=== PATIENT | female | born 1975 | race Caucasian/White ===

== ENCOUNTER 2018-08-23 07:17 | Inpatient (IN) | payer BC ==
[~2018-08-23] VITALS: Ht 167.6 cm; Wt 83.0 kg
[~2018-08-23 07:17] MED LIST: BACTRIM DS TAB1 EACH PO; MULTIPLE VITAM1 EAC1 PO; ZOFRAN ODT4 MG PO
[2018-08-23 07:18] VITALS: BP 114/84
[2018-08-23] MEDS ORDERED: SYNTHROID50 MCG PO (07:26)
[2018-08-23] MEDS ORDERED: ADDERALL 20 MG20 M1 PO (07:26)
[2018-08-23] MEDS ORDERED: ZOLOFT25 MG PO (07:27)
[2018-08-23 09:55] LABS: HEMOGLOBIN 13.7 gm/dL (12.0-15.0); MCH 32.6 pg (26.0-34.0); MCHC 35.2 g/dL (28.0-37.0); MCV 92.5 fL (80.0-100.0); RBC 4.21 mil/uL (4.20-5.00); WBC 6.8 thou/uL (4.0-11.0)
[2018-08-23 10:11] LABS: CALCIUM 8.2 mg/dL (8.5-10.1); CREATININE 0.9 mg/dL (0.6-1.0); MAGNESIUM 2.1 mg/dL (1.8-2.4); POTASSIUM 3.9 mmol/L (3.5-5.1)
--- NOTE | 2018-08-23 10:33 | NUR ---
ASSUMED PT CARE AT THIS TIME
[2018-08-23 11:55] VITALS: BP 114/71
[2018-08-23 20:35] VITALS: BP 113/72
--- NOTE | 2018-08-23 21:07 | NUR ---
PATIENT ALERT AND ORIENTED WITH AT BEDSIDE. PATIENT HAS LOW BACK SPASM EPISODES BUT STATES IT IS GETTING BETTER. INSTUCT PATIENT TO CALL FOR PAIN MEDICINE PRIOR TO PAIN GETTING INTOLERABLE AND INSTRUCT ON POSITIONING AND CALLING FOR HELP WHEN NEEDED. MRI SCHEDULED FOR THE AM. WILL CONTINUE TO FOLLOW.
[2018-08-24 03:53] LABS: CALCIUM 8.8 mg/dL (8.5-10.1); CREATININE 0.9 mg/dL (0.6-1.0); POTASSIUM 3.9 mmol/L (3.5-5.1)
[2018-08-24 04:08] LABS: HEMATOCRIT 39.7 % (37.0-47.0); HEMOGLOBIN 13.8 gm/dL (12.0-15.0); MCH 32.3 pg (26.0-34.0); MCHC 34.6 g/dL (28.0-37.0); MCV 93.3 fL (80.0-100.0); RBC 4.26 mil/uL (4.20-5.00); WBC 9.7 thou/uL (4.0-11.0)
[2018-08-24 04:45] VITALS: BP 106/79
--- NOTE | 2018-08-24 06:32 | NUR ---
ASSUMED CARE AT 1900, ASSESSMENT COMPLETED. PT C/O SEVERE LOW BACK PAIN, WORSE WITH MOVEMENT, ALSO REPORTS NUMB FEELING IN HANDS AND FEET. DENIES NAUSEA OR SOB. GAVE DOSE OF 1MG DILAUDID AT 1999, PT REPORTED IT HELPED THE PAIN VERY WELL. ALSO GAVE FLEXERIL AT HS. PT DENIED NEEDING PAIN MEDS THE REST OF THE NIGHT. WILL HAVE MRI TODAY. NO OTHER CONCERNS, WILL CONTINUE TO MONITOR.
[2018-08-24 07:20] VITALS: BP 110/57
--- NOTE | 2018-08-24 11:37 | NUR ---
ASSUMED CARE THIS AM, SHIFT ASSESSMENT DONE, MEDS GIVEN, VSS. REPORTED SEVERE PAIN, PRN PAIN MEDS GIVEN. WENT FOR A MRI THIS AM. RESTING IN BED NOW. DENIES ANY OTHER CONCERNS. WILL CONTINUE TO ASSESS AND ASSIST WITH ADLs NEEDED.
--- NOTE | 2018-08-24 13:45 | NUR ---
cm visited with pt and sig other at bedside, rt dcp. pt able to make her needs know " feeling better from yesterday, still hurting"/kelly. noted pt yell out when changing position in bed. pt reported " home with family, 2 to enter, 8-10 with hr x 1 to kids room, and 6 with hr x 1 to basement. when feeling ok, independent. 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 no anticipated needs. dcp home
[2018-08-24 16:30] VITALS: BP 105/65
[2018-08-24 20:15] VITALS: BP 114/68
[2018-08-24 22:00] VITALS: BP 126/68
--- NOTE | 2018-08-25 03:43 | NUR ---
PT WAS OBSERVED WATCHING TV IN HER ROOM AT THE START OF SHIFT.PT C/O LOWER BACK PAIN,MANAGED WITH PO PAIN MED.PT RESTING ON HER BED AT THIS TIME.UP WITHSBA TO THE BR.PT SLEEPING COMFORTABLY ON HER BED AT THIS TIME.CALL LIGHT WITHIN REACH.
[2018-08-25 06:16] VITALS: BP 108/55
[2018-08-25 07:41] VITALS: BP 116/60
[2018-08-25] MEDS ORDERED: FLEXERIL PO (14:11)
[2018-08-25] MEDS ORDERED: PERCOCET 5-3251 EACH PO (14:12)
[2018-08-25] MEDS ORDERED: PREDNISONE 10 M10 MG PO (14:13)
[2018-08-25 15:43] VITALS: BP 116/60
[2018-08-25 15:54] VITALS: BP 116/60
[2018-08-25 18:23] VITALS: BP 116/60
--- NOTE | 2018-08-25 18:24 | NUR ---
PT REVIEWED DISCHARGE PAPERS SIGNED AND COPY IN CHART. GIVEN ORIGINALS INCLUDING RX'S. IV ACESS DCD ALL BELONGINGS PACKED AND SENT WITH PATIENT.
--- NOTE | 2018-08-25 19:37 | NUR ---
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 WILL HAVE NURSES CALL PHARMACY ON HOW TO WASTE.
== END 2018-08-25 17:45 | disposition home or self-care (01) | DRG 552 ==
LOC: ER 07:17 → 4E 11:44 → EROBS 11:44 → 4E 12:21 → ENTRNSPT 08-25 17:35 → 4E 08-25 17:45
PROVIDERS: Emergency Medicine; ADMIT Hospitalist
DX: M54.5 Low back pain (principal); E03.9 Hypothyroidism, unspecified; F90.9 Attention-deficit hyperactivity disorder, unspecified type; F17.210 Nicotine dependence, cigarettes, uncomplicated; Z98.891 History of uterine scar from previous surgery; Z79.899 Other long term (current) drug therapy; Z88.1 Allergy status to other antibiotic agents; Z88.5 Allergy status to narcotic agent; Z28.21 Immunization not carried out because of patient refusal
CPT/HCPCS: 10084

== ENCOUNTER 2018-09-30 00:52 | Emergency (ER) | payer BC ==
[~2018-09-30] VITALS: Ht 167.6 cm; Wt 83.9 kg
[~2018-09-30 00:52] MED LIST changes: +ADDERALL 20 MG20 M1 PO; +FLEXERIL PO; +PERCOCET 5-3251 EACH PO; +PREDNISONE 10 M10 MG PO; +SYNTHROID50 MCG PO; +ZOLOFT25 MG PO
[2018-09-30 01:35] LABS: URINE BILIRUBIN NEGATIVE (Negative); URINE BLOOD TRACE (Negative); URINE CLARITY CLEAR; URINE COLOR YELLOW; URINE GLUCOSE-RANDOM* NEGATIVE (Negative); URINE KETONES TRACE (Negative); URINE LEUKOCYTES-REFLEX NEGATIVE (Negative); URINE PROTEIN (DIPSTICK) NEGATIVE (Negative)
[2018-09-30 01:42] LABS: URINE NITRITE-REFLEX POSITIVE (Negative)
[2018-09-30 01:51] LABS: SQUAMOUS 0-3 Few /LPF (0-3); URINE WBC-REFLEX 0-5 Rare /HPF (0-5)
[2018-09-30 01:52] LABS: BACTERIA-REFLEX 1-9 Few /HPF (None Seen); CASTS None Seen /LPF (None Seen); CRYSTALS None Seen /LPF (None Seen); MUCUS 0-3 Light strn/LPF (None Seen); URINE RBC 0-2 Rare /HPF (0-2)
[2018-09-30] MEDS ORDERED: PERCOCET 5-3251 EACH PO (02:15)
[2018-09-30] MEDS ORDERED: KEFLEX500 M1 PO (02:15)
[2018-09-30] MEDS ORDERED: SENNA-DOCUSATE1 EAC1 PO (02:15)
[2018-09-30] MEDS ORDERED: NAPROSYN500 MG PO (02:15)
[2018-09-30] MEDS ORDERED: MEDROLDOSEPACK PO (02:15)
[2018-09-30 02:18] VITALS: BP 127/80
== END 2018-09-30 02:27 | disposition home or self-care (01) ==
LOC: ER 00:52
PROVIDERS: Emergency Medicine
DX: M48.061 Spinal stenosis, lumbar region without neurogenic claudication (principal); N39.0 Urinary tract infection, site not specified; Z98.890 Other specified postprocedural states; F17.210 Nicotine dependence, cigarettes, uncomplicated; Z88.1 Allergy status to other antibiotic agents; Z88.5 Allergy status to narcotic agent; M25.571 Pain in right ankle and joints of right foot; M25.572 Pain in left ankle and joints of left foot

== ENCOUNTER 2019-04-16 11:09 | Emergency (ER) | payer BC ==
[~2019-04-16] VITALS: Ht 167.6 cm; Wt 81.7 kg
[~2019-04-16 11:09] MED LIST changes: +KEFLEX500 M1 PO; +MEDROLDOSEPACK PO; +NAPROSYN500 MG PO; +SENNA-DOCUSATE1 EAC1 PO
[2019-04-16] MEDS ORDERED: BUTALB-APAP-CA1 EACH PO (13:33)
[2019-04-16] MEDS ORDERED: NORFLEX100 MG PO (13:34)
[2019-04-16 14:02] VITALS: BP 132/91
== END 2019-04-16 14:02 | disposition home or self-care (01) ==
LOC: ER 11:09
DX: S00.03XA Contusion of scalp, initial encounter (principal); F17.210 Nicotine dependence, cigarettes, uncomplicated; Z98.890 Other specified postprocedural states; Z88.6 Allergy status to analgesic agent; Z88.1 Allergy status to other antibiotic agents; V89.2XXA Person injured in unspecified motor-vehicle accident, traffic, initial encounter; Y93.89 Activity, other specified; Y92.488 Other paved roadways as the place of occurrence of the external cause; Y99.8 Other external cause status

== ENCOUNTER 2020-02-19 22:57 | Emergency (ER) | payer BC ==
[~2020-02-19] VITALS: Ht 167.6 cm; Wt 74.8 kg
[~2020-02-19 22:57] MED LIST changes: +BUTALB-APAP-CA1 EACH PO; +NORFLEX100 MG PO
[2020-02-19 23:37] LABS: ABSOLUTE NEUTROPHILS 16.2 thou/uL (1.4-8.2); BASOPHILS 0.5 % (0.0-2.0); EOSINOPHILS 0.2 % (0.0-3.0); HEMATOCRIT 42.4 % (37.0-47.0); HEMOGLOBIN 14.6 gm/dL (12.0-15.0); MCHC 34.5 g/dL (28.0-37.0); MCV 90.1 fL (80.0-100.0); PLATELET COUNT 271 thou/uL (150-400); POLYS 91.3 % (36.0-66.0); RBC 4.71 mil/uL (4.20-5.00); RDW 12.4 % (10.5-14.5); WBC 17.7 thou/uL (4.0-11.0)
[2020-02-19 23:59] LABS: ANION GAP 11 mmol/L (7-16); BUN 12 mg/dL (7-18); CALCIUM 8.9 mg/dL (8.5-10.1); CHLORIDE 99 mmol/L (98-107); CO2 24 mmol/L (21-32); GLUCOSE 105 mg/dL (74-106); SODIUM 134 mmol/L (136-145)
[2020-02-19 23:59] LABS: URINE BILIRUBIN NEGATIVE (Negative); URINE BLOOD TRACE (Negative); URINE CLARITY CLEAR; URINE COLOR YELLOW; URINE GLUCOSE-RANDOM* NEGATIVE (Negative); URINE KETONES TRACE (Negative); URINE LEUKOCYTES-REFLEX NEGATIVE (Negative); URINE PROTEIN (DIPSTICK) NEGATIVE (Negative); URINE SPECIFIC GRAVITY >= 1.030 (1.005-1.035); URINE UROBILINOGEN 0.2 E.U./dl (0.2-1.0)
[2020-02-20] LABS: URINE NITRITE-REFLEX POSITIVE (Negative)
[2020-02-20 00:08] LABS: AMP/METHAMP POSITIVE (Negative); BARBITURATES Negative (Negative); BENZODIAZEPINES Negative (Negative); COCAINE Negative (Negative); METHADONE Negative (Negative); OPIATES Negative (Negative); PCP Negative (Negative)
[2020-02-20 00:09] LABS: ALBUMIN 4.2 g/dL (3.4-5.0); MAGNESIUM 2.1 mg/dL (1.8-2.4); SALICYLATE < 2.8 mg/dL (2.8-20.0); SGOT 30 U/L (15-37); SGPT 36 U/L (30-65); TOTAL BILIRUBIN 0.5 mg/dL (0.2-1.0); TOTAL PROTEIN 7.8 g/dL (6.4-8.2); TROPONIN-I <0.06 ng/mL (<0.06)
[2020-02-20 00:19] LABS: BACTERIA-REFLEX >30 Many /HPF (None Seen); CASTS None Seen /LPF (None Seen); CRYSTALS None Seen /LPF (None Seen); MUCUS 4-6 Moderate strn/LPF (None Seen); SQUAMOUS None Seen /LPF (0-3); URINE RBC 0-2 Rare /HPF (0-2); URINE WBC-REFLEX 6-15 Few /HPF (0-5)
[2020-02-20] MEDS ORDERED: TRAMADOL 50 MG50 MG PO (01:23)
[2020-02-20] MEDS ORDERED: BACTRIM DS TAB1 EACH PO (01:23)
[2020-02-20] MEDS ORDERED: NAPROSYN500 MG PO (01:23)
[2020-02-20] MEDS ORDERED: CLINDAMYCIN HC300 MG PO (01:50)
[2020-02-20] MEDS ORDERED: MACROBID 100 M100 M1 PO (01:50)
[2020-02-20 05:29] VITALS: BP 113/69
--- NOTE | 2020-02-21 08:14 | EKG ---
[facility] [place] [address] ELECTROCARDIOGRAM REPORT Name: SENA NASH [id number] Admission: 02/19/20 Attend Phys: Discharge: 02/20/20 Date of : 79 Report #: [id number] THIS REPORT FOR: cc: [facility] - Clinic physician unknown [facility] - Clinic physician unknown Juan Padilla MD [facility] ~ THIS REPORT FOR: //name// [facility] ED Test Date: 2020-02-19 Test Time: 23:37:37 Pat Name: SENA NASH Department: Room: Gender: F [employer] Technician: : 1975 Requested By: Basilio Lutz Order Number: [id number] MD: Juan Padilla Measurements Intervals [place] Rate: 112 P: 56 PA: 159 QRS: 53 QRSD: 85 T: 29 QT: 310 QTc: 423 Interpretive Statements Sinus tachycardia Otherwise normal tracing No previous ECG available for comparison Electronically Signed On 02-21-2020 8:14:36 CDT by Juan Padilla [email or web address] <ELECTRONICALLY SIGNED> By: Juan Padilla MD, [facility] 02/21/20 0814 36 36 Juan Padilla MD, FACC /EPI
== END 2020-02-20 06:00 | disposition home or self-care (01) ==
LOC: ER 22:57
PROVIDERS: Emergency Medicine
DX: L03.114 Cellulitis of left upper limb (principal); N39.0 Urinary tract infection, site not specified; R11.2 Nausea with vomiting, unspecified; F15.10 Other stimulant abuse, uncomplicated; F17.210 Nicotine dependence, cigarettes, uncomplicated; Z88.1 Allergy status to other antibiotic agents; Z88.5 Allergy status to narcotic agent; Z98.890 Other specified postprocedural states; Z87.440 Personal history of urinary (tract) infections; Z79.899 Other long term (current) drug therapy

== ENCOUNTER 2020-05-02 08:46 | Emergency (ER) | payer BC ==
[~2020-05-02] VITALS: Ht 167.6 cm; Wt 77.1 kg
[~2020-05-02 08:46] MED LIST changes: +CLINDAMYCIN HC300 MG PO; +MACROBID 100 M100 M1 PO; +TRAMADOL 50 MG50 MG PO
[2020-05-02 09:04] LABS: URINE BILIRUBIN NEGATIVE (Negative); URINE BLOOD 3+ (Negative); URINE CLARITY SL CLOUDY; URINE COLOR YELLOW; URINE GLUCOSE-RANDOM* NEGATIVE (Negative); URINE KETONES NEGATIVE (Negative); URINE PROTEIN (DIPSTICK) NEGATIVE (Negative); URINE SPECIFIC GRAVITY 1.025 (1.005-1.035); URINE UROBILINOGEN 0.2 E.U./dl (0.2-1.0)
[2020-05-02 09:08] LABS: URINE LEUKOCYTES-REFLEX 1+ (Negative); URINE NITRITE-REFLEX POSITIVE (Negative)
[2020-05-02 09:16] LABS: ABSOLUTE NEUTROPHILS 6.8 thou/uL (1.4-8.2); BASOPHILS 0.7 % (0.0-2.0); EOSINOPHILS 1.4 % (0.0-3.0); HEMATOCRIT 40.9 % (37.0-47.0); HEMOGLOBIN 14.2 gm/dL (12.0-15.0); MCH 31.3 pg (26.0-34.0); MCHC 34.6 g/dL (28.0-37.0); MCV 90.4 fL (80.0-100.0); MONOCYTES 8.8 % (1.0-8.0); PLATELET COUNT 300 thou/uL (150-400); POLYS 71.1 % (36.0-66.0); RBC 4.53 mil/uL (4.20-5.00); RDW 12.9 % (10.5-14.5); WBC 9.6 thou/uL (4.0-11.0)
[2020-05-02 09:25] LABS: CALCIUM 8.8 mg/dL (8.5-10.1); CREATININE 0.8 mg/dL (0.6-1.0); POTASSIUM 4.3 mmol/L (3.5-5.1)
[2020-05-02 09:27] LABS: SQUAMOUS >10 Many /LPF (0-3)
[2020-05-02 09:28] LABS: CASTS None Seen /LPF (None Seen)
[2020-05-02 09:29] LABS: URINE RBC 0-2 Rare /HPF (0-2); URINE WBC-REFLEX 6-15 Few /HPF (0-5)
[2020-05-02 09:30] LABS: BACTERIA-REFLEX >30 Many /HPF (None Seen); CRYSTALS None Seen /LPF (None Seen); MUCUS 0-3 Light strn/LPF (None Seen)
[2020-05-02 09:31] LABS: TOTAL BILIRUBIN 0.5 mg/dL (0.2-1.0); TOTAL PROTEIN 7.9 g/dL (6.4-8.2)
[2020-05-02] MEDS ORDERED: ZOFRAN ODT4 MG PO (11:32)
[2020-05-02] MEDS ORDERED: SENNA-DOCUSATE1 EAC1 PO (11:32)
[2020-05-02] MEDS ORDERED: ULTRAM 50MG TAB50 MG PO (11:32)
[2020-05-02] MEDS ORDERED: MACROBID 100 M100 M1 PO (11:32)
[2020-05-02 12:11] VITALS: BP 116/89
== END 2020-05-02 12:12 | disposition home or self-care (01) ==
LOC: ER 08:46
PROVIDERS: Emergency Medicine
DX: N12 Tubulo-interstitial nephritis, not specified as acute or chronic (principal); F17.210 Nicotine dependence, cigarettes, uncomplicated; Z88.1 Allergy status to other antibiotic agents; Z88.5 Allergy status to narcotic agent

== ENCOUNTER 2021-07-26 14:16 | Emergency (ER) | payer OTHER ==
[~2021-07-26 14:16] MED LIST changes: +ULTRAM 50MG TAB50 MG PO
[2021-07-26 14:33] VITALS: BP 124/87
[2021-07-26 15:09] LABS: URINE BILIRUBIN NEGATIVE (Negative); URINE BLOOD TRACE (Negative); URINE CLARITY SL CLOUDY; URINE COLOR YELLOW; URINE GLUCOSE-RANDOM* NEGATIVE (Negative); URINE KETONES NEGATIVE (Negative); URINE LEUKOCYTES-REFLEX NEGATIVE (Negative); URINE PROTEIN (DIPSTICK) NEGATIVE (Negative); URINE UROBILINOGEN 0.2 E.U./dl (0.2-1.0)
[2021-07-26 15:11] LABS: URINE NITRITE-REFLEX POSITIVE (Negative)
[2021-07-26 15:26] LABS: CASTS None Seen /LPF (None Seen); SQUAMOUS 0-3 Few /LPF (0-3); URINE WBC-REFLEX 0-5 Rare /HPF (0-5)
[2021-07-26 15:27] LABS: BACTERIA-REFLEX >30 Many /HPF (None Seen); CRYSTALS None Seen /LPF (None Seen); URINE RBC 3-10 Few /HPF (NONE SEEN)
[2021-07-26] MEDS ORDERED: CEPHALEXIN500 MG PO (15:35)
== END 2021-07-26 16:35 | disposition home or self-care (01) ==
LOC: ER 14:16
PROVIDERS: Student in an Organized Health Care Education/Training Program
DX: N39.0 Urinary tract infection, site not specified (principal); G43.909 Migraine, unspecified, not intractable, without status migrainosus; F17.210 Nicotine dependence, cigarettes, uncomplicated; Z98.890 Other specified postprocedural states; Z79.899 Other long term (current) drug therapy; Z88.1 Allergy status to other antibiotic agents; Z88.5 Allergy status to narcotic agent